=== PATIENT | female | born 1995 | race African-American/Black ===

== ENCOUNTER 2020-09-05 10:33 | Outpatient (CLI) | payer OTHER, BC, SELFPAY ==
[2020-09-11 12:02] LABS: HSV 1 IgM Screen Negative (Negative); HSV 2 IgM Screen Positive (Negative)
[2020-09-11 12:35] LABS: HSV 2 IgM Titer 1:20 (<1:20)
== END 2020-09-05 10:34 | disposition home or self-care (01) ==
LOC: ANHLAB 10:36
PROVIDERS: PCP Obstetrics & Gynecology; Visit Provider Obstetrics & Gynecology
DX: Z20.2 Contact with and (suspected) exposure to infections with a predominantly sexual mode of transmission (principal)
CPT/HCPCS: 36415; 86695; 86696

== ENCOUNTER 2021-09-08 12:28 | Outpatient (CLI) | payer OTHER, SELFPAY ==
[2021-09-11 05:33] LABS: Progesterone 5.5 ng/mL (***)
== END 2021-09-08 12:29 | disposition home or self-care (01) ==
PROVIDERS: Visit Provider Obstetrics & Gynecology
DX: N91.2 Amenorrhea, unspecified (principal)
CPT/HCPCS: 36415; 84144; 84702

== ENCOUNTER 2021-09-13 09:57 | Outpatient (CLI) | payer OTHER, SELFPAY | END 2021-09-13 09:58 | disposition home or self-care (01) | LOC: ANHLAB 09:59 | PROVIDERS: Visit Provider Obstetrics & Gynecology | DX: N91.2 Amenorrhea, unspecified (principal) | CPT/HCPCS: 36415; 84702 ==